=== PATIENT | male | born 1995 | race American Indian/Alaskan Native ===

== ENCOUNTER 2016-08-04 04:31 | Emergency (ER) | payer OTHER ==
[2016-08-04 04:37] VITALS: BP 151/90
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
[2016-08-04] MEDS ORDERED: Acetaminophen/HYDROcodone 325-10 MG Tab PO ONE ×2 (05:08→06:50)
[2016-08-04] MEDS ORDERED: cefTRIAXone 1 GM in Sodium Chloride 0.9% 50 ML IV ONE (06:23)
[2016-08-04] MEDS ORDERED: Acetaminophen/HYDROcodone 325-10 MG Tab ONE (06:50)
== END 2016-08-04 07:20 | disposition home or self-care (01) ==
LOC: DL.ED 04:31
DX: S82.891A Other fracture of right lower leg, initial encounter for closed fracture (principal); S02.40FA Zygomatic fracture, left side, initial encounter for closed fracture; Y09 Assault by unspecified means; Z91.018 Allergy to other foods
CPT/HCPCS: 70450; 70486; 73610; 96365; 99284; A9270; J0696; J7050; 99283

== ENCOUNTER 2016-11-14 22:03 | Emergency (ER) | payer OTHER ==
[2016-11-14 22:19] VITALS: BP 145/81
--- NOTE | 2016-11-14 23:34 | EDM.PDOC ---
ED HPI GENERAL MEDICAL PROBLEM - General Chief Complaint: Respiratory Problem Stated Complaint: TROUBLE BREATHING, [id number] Time Seen by Provider: 11/14/16 22:30 Source of Information: Reports: Patient History Limitations: Reports: No Limitations - History of Present Illness INITIAL COMMENTS - FREE TEXT/NARRATIVE: ED with c/o right side pain with breathing noted on awakening today. Non smoker. States moving over fences and running yesterday in [place]. - Related Data Allergies Allergy/AdvReac Type Severity Reaction Status Date / Time mykel Allergy Hives Uncoded 11/14/16 22:15 Home Meds: Home Meds . [No Known Home Meds] 08/25/15 [History] Past Medical History - Past Health History Medical/Surgical History: Denies Medical/Surgical History HEENT History: Reports: None Cardiovascular History: Reports: None Respiratory History: Reports: None Gastrointestinal History: Reports: None Genitourinary History: Reports: None Musculoskeletal History: Reports: None Neurological History: Reports: None Psychiatric History: Reports: None Endocrine/Metabolic History: Reports: None Hematologic History: Reports: None Immunologic History: Reports: None Oncologic (Cancer) History: Reports: None Dermatologic History: Reports: None Social & Family History - Family History HEENT: Reports: None Cardiac: Reports: None Respiratory: Reports: None GI: Reports: None - Tobacco Use Smoking Status *Q: Unknown Ever Smoked Second Hand Smoke Exposure: No - Caffeine Use Caffeine Use: Reports: Soda - Alcohol Use Days Per Week of Alcohol Use: 2 Number of Drinks Per Day: 3 Total Drinks Per Week: 6 - Recreational Drug Use Recreational Drug Use: No ED ROS GENERAL - Review of Systems Review Of Systems: See Below Constitutional: Reports: No Symptoms HEENT: Reports: No Symptoms Respiratory: Reports: Pleuritic Chest Pain. Denies: Cough Cardiovascular: Reports: No Symptoms GI/Abdominal: Reports: No Symptoms : Reports: Flank Pain (right with breathing and moving) Musculoskeletal: Reports: Muscle Pain (right side) Skin: Reports: No Symptoms Neurological: Reports: No Symptoms Psychiatric: Reports: No Symptoms ED EXAM, GENERAL - Physical Exam Exam: See Below Exam Limited By: No Limitations General Appearance: Alert, Mild Distress (withmovement or deep inspiration), Obese (morbid) Eye Exam: Bilateral Eye: EOMI Ears: Normal External Exam, Hearing Grossly Normal, Normal TMs Nose: Normal Inspection Throat/Mouth: Normal Inspection Respiratory/Chest: No Respiratory Distress, Lungs Clear, Normal Breath Sounds. No: Rhonchi, Wheezing, Stridor, Retractions Cardiovascular: Normal Peripheral Pulses, Regular Rate, Rhythm GI/Abdominal: Soft Back Exam: Normal Inspection Extremities: Normal Inspection, Normal Range of Motion Neurological: Alert, Oriented Psychiatric: Normal Affect, Normal Mood Skin Exam: Warm, Dry, Intact, Normal Color Course - Vital Signs Last Recorded V/S: Last Vital Signs Temp 98.9 F 11/14/16 22:18 Pulse 107 H 11/14/16 22:18 Resp 20 11/14/16 22:18 BP 145/81 H 11/14/16 22:18 Pulse Ox 99 11/14/16 22:18 - Radiology Interpretation Free Text/Narrative:: CXR negative Departure - Departure Time of Disposition: 23:31 Disposition: Home, Self-Care 01 Condition: Good Clinical Impression: Rib pain on right side - Discharge Information Instructions: Chest Wall Pain Forms: ED Department Discharge Additional Instructions: may use ice or heat to area for comfort alternate tylenol and ibuprofen every 4 hours as needed for pain follow up if symptoms worsen
== END 2016-11-14 23:36 | disposition home or self-care (01) ==
LOC: DL.ED 22:03
DX: R07.81 Pleurodynia (principal); Z91.018 Allergy to other foods
CPT/HCPCS: 71020; 99283

== ENCOUNTER 2020-03-08 16:48 | Emergency (ER) | payer OTHER ==
[2020-03-08 17:19] VITALS: BP 145/91; PULSE 92
--- NOTE | 2020-03-08 18:26 | EDM.PDOC ---
ED HPI GENERAL MEDICAL PROBLEM - General Chief Complaint: ENT Problem Stated Complaint: EYE PROBLEMS Time Seen by Provider: 03/08/20 17:30 Source of Information: Reports: Patient, RN, RN Notes Reviewed History Limitations: Reports: No Limitations - History of Present Illness INITIAL COMMENTS - FREE TEXT/NARRATIVE: Patient presents to the ED via personal vehicle with complaints of transient vision loss of the left eye. The patient reports he first experienced changes in his vision this past Saturday03/04/2020, while jumping off of his tractor. He states he saw "..a lightening bolt shoot across my eye everything was bright." He notes he was unable to see clearly in "half of his left eye vision" for about 20 minutes. He states he has experienced about one similar episode to the same eye, each day since the original episode; vision has slowly returned each time in about 20 minutes. He denies pain, drainage, or irritation to the eye or eyelid. He does voice complaints of mild headache for the past several days. He has not taken any medication for this headache. He denies fever, shaking chills, recent illness, sore throat, cough, ear pain/drainage/pressure, sinus pain/drainage/pressure, nausea, or vomiting. - Related Data Allergies Allergy/AdvReac Type Severity Reaction Status Date / Time mykel Allergy Hives Uncoded 11/14/16 22:15 Home Meds: Home Meds . [No Known Home Meds] 08/25/15 [History] Past Medical History - Past Health History Medical/Surgical History: Denies Medical/Surgical History HEENT History: Reports: None Cardiovascular History: Reports: None Respiratory History: Reports: None Gastrointestinal History: Reports: None Genitourinary History: Reports: None Musculoskeletal History: Reports: None Neurological History: Reports: None Psychiatric History: Reports: None Endocrine/Metabolic History: Reports: None Hematologic History: Reports: None Immunologic History: Reports: None Oncologic (Cancer) History: Reports: None Dermatologic History: Reports: None Social & Family History - Family History HEENT: Reports: None Cardiac: Reports: None Respiratory: Reports: None GI: Reports: None - Tobacco Use Tobacco Use Status *Q: Never Tobacco User - Caffeine Use Caffeine Use: Reports: None ED ROS ENT - Review of Systems Review Of Systems: Comprehensive ROS is negative, except as noted in HPI. ED EXAM, ENT - Physical Exam Exam: See Below Exam Limited By: No Limitations General Appearance: Alert, WD/WN, No Apparent Distress Eye Exam: Bilateral Eye: EOMI, PERRL, Vision Changes Ears: Normal External Exam, Normal Canal, Hearing Grossly Normal, Normal TMs Nose: Normal Inspection, Normal Mucousa. No: Nasal Discharge, Nasal Swelling, Nasal Tenderness Mouth/Throat: Normal Inspection, Normal Gums, Normal Lips, Normal Oropharynx, Normal Teeth Head: Atraumatic, Normocephalic Neck: Normal Inspection, Supple, Non-Tender, Full Range of Motion. No: Lymphadenopathy (L), Lymphadenopathy (R) Respiratory/Chest: No Respiratory Distress, Lungs Clear, Normal Breath Sounds, No Accessory Muscle Use, Chest Non-Tender Cardiovascular: Normal Peripheral Pulses, Regular Rate, Rhythm, No Edema, No Gallop, No JVD, No Murmur, No Rub Neurological: Alert, Oriented, CN II-XII Intact, Normal Cognition, Normal Gait, No Motor/Sensory Deficits Psychiatric: Normal Affect, Normal Mood Skin: Warm, Dry, Intact, Normal Color, No Rash. No: Ecchymosis, Erythema, Mottled, Pallor, Petechiae Course - Vital Signs Last Recorded V/S: Last Vital Signs Temp 98.1 F 03/08/20 17:10 Pulse 92 03/08/20 17:10 Resp 16 03/08/20 17:10 BP 145/91 H 03/08/20 17:10 Pulse Ox 100 03/08/20 17:10 - Re-Assessments/Exams Free Text/Narrative Re-Assessment/Exam: 03/08/20 Given physical exam with no pain, drainage, or irritation to eye, will refer patient to primary eye-care provider for vision assessment. Patient instructed to follow up with eye clinic in the next 1-2 days. Additionally, patient was instructed to follow up with primary care clinic regarding blood pressure today. Patient instructed to receive a blood pressure check in 1-2 days as his was elevated today at 145/91. Patient verbalized understanding and agreement with the plan of care. Departure - Departure Time of Disposition: 18:21 Disposition: Home, Self-Care 01 Condition: Good Clinical Impression: Change in vision Headache Qualifiers: Headache type: unspecified Headache chronicity pattern: acute headache Intractability: not intractable Qualified Code(s): R51.9 - Headache, unspecified - Discharge Information *PRESCRIPTION DRUG MONITORING PROGRAM REVIEWED*: Not Applicable *COPY OF PRESCRIPTION DRUG MONITORING REPORT IN PATIENT CASEY: Not Applicable Forms: ED Department Discharge Additional Instructions: 1.) Follow up with your primary eye-care provider regarding vision changes and headache. 2.) You may take acetaminophen (Tylenol) 650mg every six hours for headache. You may take ibuprofen (Motrin/Advil) 400mg every six hours for headache. You may stagger these medications so you are taking a dose every three hours. 3.) Follow up with your primary care provider for a blood pressure recheck. Sepsis Event Note (ED) - Evaluation Sepsis Screening Result: No Definite Risk - Focused Exam Vital Signs: Vital Signs Temp Pulse Resp BP Pulse Ox 03/08/20 17:10 98.1 F 92 16 145/91 H 100
== END 2020-03-08 18:42 | disposition home or self-care (01) ==
LOC: DL.ED 16:48
DX: H53.8 Other visual disturbances (principal); R51.9 Headache, unspecified; Z91.018 Allergy to other foods
CPT/HCPCS: 99283